=== PATIENT | male | born 1990 | race Caucasian/White ===

== ENCOUNTER → 2024-05-18 12:45 | Outpatient (REF) | payer OTHER, SELFPAY | LOC: RCS 12:45 | PROVIDERS: ATTENDING PHYSICIAN Nurse Practitioner Family | DX: R07.89 Other chest pain (principal); R26.2 Difficulty in walking, not elsewhere classified | CPT/HCPCS: 93306 ==

== ENCOUNTER → 2024-05-22 07:00 | Outpatient (REF) | payer OTHER, SELFPAY | LOC: DHCBC/DCA 07:00 | PROVIDERS: ATTENDING PHYSICIAN Nurse Practitioner Family | DX: R07.89 Other chest pain (principal); R26.2 Difficulty in walking, not elsewhere classified | CPT/HCPCS: 78452; 93017; A9500; J2785 ==

== ENCOUNTER 2025-05-17 07:24 | Emergency (ER) | payer OTHER, SELFPAY ==
[2025-05-17 07:30] VITALS: BP 121/75
[2025-05-17 07:40] VITALS: BP 143/100; BMI 32.3
--- NOTE | 2025-05-17 07:52 | ED.GENMED ---
History of Present Illness
<Oneyda Goodrich DO, Resident - Last Filed: 05/17/25 15:17>
General
Chief Complaint: Chest Pain
Source: patient
Exam Limitations: none
Time Seen by Provider: 05/17/25 07:35
Nursing documentation reviewed up to this point in time: agreed with
History of Present Illness
History of Present Illness:
Patient is a 35-year-old male past medical history of bilateral clubfeet s/p surgeries, presenting with new onset chest tightness for 1 week. Patient thinks he had 'heat stroke' last , and has not been feeling well since. Patient works at
a [email or web address] shop which had a broken AC unit last week. He thinks that the heat was affecting him. He has had chest tightness which she describes as a pressure, that has not gone away. Patient denies radiation down the arms or radiation to the back.
Patient denies shortness of breath. Patient denies nausea, vomiting. Patient states this is happened once before about a year ago. The pain was similar the patient was worked up by his primary care doc. They did an echo and a stress test which
he states was negative. Patient drinks about 3 beers a week. Patient smokes a pack of cigarettes a day and 2 to 3 cigars a week. Patient uses marijuana every other day.
Phy Exam
<Oneyda Goodrich DO, Resident - Last Filed: 05/17/25 15:17>
General Physical Exam
General Presentation: well appearing and no apparent distress
General age: appears stated age
General Skin: warm and dry
General Habitus: normal
General Mental: alert
Cardiovascular Exam
Cardiovascular Exam: regular rate/rhythm
Heart Sounds: normal
Pulmonary Exam
Pulmonary Exam: lungs clear and no respiratory distress
Gastrointestinal Exam
Gastrointestinal Exam: normal bowel sounds and non tender
Neurological Exam
Neurological Exam: alert and oriented x3
Musculoskeletal Exam
Musculoskeletal Exam: other (Patient uses a cane for assistance for clubfeet.)
Skin Exam
Skin Exam: normal color
Psychiatric Exam
Psychiatric Exam: normal mood/affect
Scores
<Oneyda Goodrich DO, Resident - Last Filed: 05/17/25 15:17>
Heart Score for Chest Pain Patients
STEMI patient?: Not applicable
Course
<Oneyda Goodrich DO, Resident - Last Filed: 05/17/25 15:17>
Orders/Labs/Results
Orders:
Orders
05/17/25 07:25
ECG [Electrocardiogram (*1)] Urgent
Reason for Study: Chest Pain
EKG- Treatment ONCE
05/17/25 07:57
CMP [Comprehensive Metabolic Panel] Urgent
Complete Blood Count/With Diff Urgent
Troponin I Urgent
05/17/25 08:12
CR Chest - 2 Views Urgent
Comment:
Reason For Exam: chest pain
Abnormal Lab Results
05/17/25
07:57
MCH 31.3 H pg
(27.0-31.0)
Absolute Monos (auto) 0.8 H 10^3/uL
(0.1-0.6)
Monocytes % 11.9 H %
(1.7-9.3)
Glucose 114 H mg/dl
(70-99)
05/17/25 07:57
05/17/25 07:57
Vital Signs
Initial and Last Documented VS:
Initial Vital Signs
Temp Pulse Resp BP Pulse Ox
98.0 F 84 16 121/75 98
05/17/25 07:30 05/17/25 07:30 05/17/25 07:30 05/17/25 07:30 05/17/25 07:30
Last Documented Vital Signs
Temp Pulse Resp BP Pulse Ox
98.0 F 61 19 117/85 99
05/17/25 07:30 05/17/25 09:00 05/17/25 07:45 05/17/25 09:00 05/17/25 09:00
<Joel Haque DO - Last Filed: 05/17/25 08:29>
Orders/Labs/Results
Orders:
Orders
05/17/25 07:25
ECG [Electrocardiogram (*1)] Urgent
Reason for Study: Chest Pain
EKG- Treatment ONCE
05/17/25 07:57
CMP [Comprehensive Metabolic Panel] Urgent
Complete Blood Count/With Diff Urgent
Troponin I Urgent
05/17/25 08:12
CR Chest - 2 Views Urgent
Comment:
Reason For Exam: chest pain
Abnormal Lab Results
05/17/25
07:57
MCH 31.3 H pg
(27.0-31.0)
Absolute Monos (auto) 0.8 H 10^3/uL
(0.1-0.6)
Monocytes % 11.9 H %
(1.7-9.3)
Glucose 114 H mg/dl
(70-99)
05/17/25 07:57
05/17/25 07:57
Vital Signs
Initial and Last Documented VS:
Initial Vital Signs
Temp Pulse Resp BP Pulse Ox
98.0 F 84 16 121/75 98
05/17/25 07:30 05/17/25 07:30 05/17/25 07:30 05/17/25 07:30 05/17/25 07:30
Last Documented Vital Signs
Temp Pulse Resp BP Pulse Ox
98.0 F 61 19 117/85 99
05/17/25 07:30 05/17/25 09:00 05/17/25 07:45 05/17/25 09:00 05/17/25 09:00
<Oneyda oGodrich DO, Resident - Last Filed: 05/17/25 15:17>
MDM/Problems Addressed
Differential Diagnosis Includes:
Chest pain
MDM/Problems Addressed:
EKG showed normal sinus rhythm. Chest x-ray showed no evidence of active cardiopulmonary disease. Blood work unremarkable troponin negative. Discussed with patient environmental and social factors factors that might be attributing to chest
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 Patient would eventually like to quit smoking and plans to discuss further with his primary care physician.
<Oneyda Goodrich DO, Resident - Last Filed: 05/17/25 15:17>
*Radiology
Radiology exam reviewed: radiology read reviewed
*Pulse Oximetry
SaO2: 98
Oxygen Mode of Delivery: Room air
Patient hypoxic: no
*EKG
Interpreted by ED Provider?: Yes
*Critical Care Note
Total Time (30-74mins, 75-104mins- exclusive of procedures): Not Applicable
ED Attending Note
<Oneyda Goodrich DO, Resident - Last Filed: 05/17/25 15:17>
-
Portions of this chart may have been created with voice recognition software.� Occasional wrong word or��sound alike� substitutions may have occurred due to the inherent limitations of voice recognition software.
<Joel Haque DO - Last Filed: 05/17/25 08:29>
ED Attending Note
Patient seen and examined by attending physician: Yes
I performed a history and physical exam of patient and discussed management with resident, I reviewed resident's note and agree with documented findings and plan of care.: Yes
ED Attending Note:
I have seen and evaluated the patient with a [id number] encounter. I have spoken to the resident and involved in the medical history, the physical exam, medical decision making.
Evaluation and management service: agree unless noted differently below.
Results interpretation: agree unless noted differently below.
Focused HPI: 35-year-old male presenting with generalized chest discomfort. This has been ongoing for the past few days. Patient attributes the symptoms secondary to increased exertion at work. Symptoms not worse with exertion. Patient states he
came to the emergency department because this was suggested by his primary care office when he called
Physical exam: Sitting in bed comfortably. Heart regular in rhythm. Lungs clear
Medical Decision Making: Given complaint, will obtain EKG, chest x-ray and troponin. We did discuss that this is likely not cardiac. If workup negative, will refer back to PCP
Discharge Plan
Departure
Patient Disposition: Home (Routine Discharge)
Date of Disposition: 05/17/25
Time of Disposition: :
Patient with high blood pressure during this ER visit?: Yes
Discharge Problem:
Chest pain
Instructions: Quitting smoking for adults, BLOOD PRESSURE, Chest Pain
Referrals:
Kameron Giordano CRNP [Family Provider, Family Practice]
Activity Restrictions/Additional Instructions:
Please follow-up with your primary care physician at your scheduled annual in June. Please return to the ED with any worsening symptoms.
Interventions
Interventions:
*Risk Screen - Suicide Last Done: 05/17/25 07:30
*General Assessment Last Done: 05/17/25 07:40
*Neglect/Abuse Screening Last Done: 05/17/25 07:30
*ED- Fall Risk Assessment Last Done: 05/17/25 07:40
*ED COVID-19 Vaccine History Last Done: 05/17/25 07:40
*Nursing Disposition Last Done: 05/17/25 09:37
ED- Cardiac Assessment Last Done: 05/17/25 07:40
Discharge Date and Time
Discharge Date/Time: 05/17/25 09:38
Print Language: [place]
[2025-05-17 08:00] VITALS: BP 124/95
[2025-05-17 08:18] LABS: Hematocrit 45.1 % (39.0-52.0); Hemoglobin 15.8 g/dL (13.0-18.0); Mean Corp Hgb Conc. 35.0 g/dL (33.0-37.0); Mean Corpuscular Volume 89.5 fL (80.0-94.0); Nucleated Red Blood Cells % 0 % (-); Platelet Count 360 10^3/uL (130-400); Red Cell Dist. Width 12.8 % (11.5-14.5)
[2025-05-17 08:25] LABS: ALT (SGPT) 20 U/L (0-50); AST (SGOT) 21 U/L (17-59); Albumin 4.8 g/dl (3.5-5.0); Alkaline Phosphatase 54 U/L (38-126); Blood Urea Nitrogen 12 mg/dl (9-20); Calcium 9.7 mg/dl (8.4-10.2); Carbon Dioxide 26 mmol/L (22-30); Chloride 107 mmol/L (98-107); Estimated Creatinine Clearance > 125 ml/min; Glucose 114 mg/dl (70-99); Potassium 4.6 mmol/L (3.5-5.1); Sodium 139 mmol/L (135-145); Total Protein 7.5 g/dl (6.3-8.2); eGFR > 60.00
[2025-05-17 08:37] LABS: Troponin I < 0.012 ng/ml
[2025-05-17 08:47] VITALS: BP 119/73
[2025-05-17 09:00] VITALS: BP 117/85
== END 2025-05-17 09:38 | disposition home or self-care (01) ==
LOC: EMR 07:24
PROVIDERS: EMERGENCY PHYSICIAN Student in an Organized Health Care Education/Training Program; FAMILY PHYSICIAN Nurse Practitioner Family
DX: R07.89 Other chest pain (principal); F17.210 Nicotine dependence, cigarettes, uncomplicated; F17.290 Nicotine dependence, other tobacco product, uncomplicated
CPT/HCPCS: 99284; 71046; 80053; 84484; 85025; 93005